=== PATIENT | male | born 1990 | race African-American/Black ===

== ENCOUNTER 2018-11-02 09:39 | Emergency (ER) | payer OTHER | END 2018-11-02 12:48 | disposition home or self-care (01) | LOC: JERFT 09:39 ==

== ENCOUNTER 2018-11-16 11:48 | Emergency (ER) | payer OTHER ==
[2018-11-16 12:34] VITALS: BP 127/79; PULSE 63; TEMP 98; BMI 30.7
--- NOTE | 2018-11-16 13:20 | PDOC ---
Suture Removal/Wound Check HPI - History of Present Illness Chief Complaint: Suture/Staple Removal(Here) Stated Complaint: STITCHES REMOVAL Time Seen by Provider: 11/16/18 12:52 History Source: Yes: Patient (pt is here for suture removal) - Previous ED Treatment Type of procedure performed on last visit: Yes: Laceration Repair Tetanus Immunization: Yes: Up to Date Past History - Travel Traveled outside of the country in the last 30 days: No Close contact w/someone who was outside of country & ill: No - Past Medical History Allergies/Adverse Reactions: Allergies Allergy/AdvReac Type Severity Reaction Status Date / Time No Known Allergies Allergy Verified 11/16/18 12:34 Home Medications: Ambulatory Orders Amox-Tr/K Cl [Augmentin 875Mg Tablet] 1 tab PO BID #14 tablet 11/02/18 Oxycodone HCl/Acetaminophen [Percocet 5-325 mg Tablet -] 1 - 2 tab PO Q4H PRN # 10 tablet MDD 6 11/02/18 COPD: No - Suicide/Smoking/Psychosocial Hx Smoking History: Never smoked Have you smoked in the past 12 months: No Information on smoking cessation initiated: No Hx Alcohol Use: No Drug/Substance Use Hx: No Suture Removal/Wound Check PE - Physical Exam Location of Laceration/Wound: left: Finger (thumb) *Review of Systems - Review of Systems Constitutional: No: Chills, Fever Musculoskeletal: No: Symptoms Reported, Joint Pain, Joint Swelling, Muscle Pain , Muscle Weakness Integumentary: No: Change in Color, Erythema, Pruritus, Rash *Physical Exam - Vital Signs Last Vital Signs Temp Pulse Resp BP Pulse Ox 98 F 63 18 127/79 99 11/16/18 12:31 11/16/18 12:31 11/16/18 12:31 11/16/18 12:31 11/16/18 12:31 - Physical Exam General Appearance: Yes: Nourished Extremity: positive: Normal Capillary Refill, Normal Range of Motion, Other ( Left thumb: + sutures noted, wound still fresh, minimal granulation tissue, edges not well approximated, no discharge or warmth) 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: 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: 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 II-XII NML intact, Fully Oriented, Alert, Normal Mood/ Affect, Normal Response, Motor Strength 5/5 Medical Decision Making - Medical Decision Making 11/16/18 13:16 L thumb lac repair 11/02/18, on abx for fx here for suture removal, no f/c pt examined, wound still healing, advised to keep stitches for 3 more days 11/16/18 13:31 *DC/Admit/Observation/Transfer Diagnosis at time of Disposition: Visit for wound check - Discharge Dispostion Disposition: HOME Condition at time of disposition: Stable Decision to Admit order: No - Referrals - Patient Instructions Printed Discharge Instructions: DI for Suture Removal Additional Instructions: Your stitches is not ready to come out You may return in 3 days for suture removal keep area dry - Post Discharge Activity
== END 2018-11-16 13:27 | disposition home or self-care (01) ==
LOC: JERFT 11:48
DX: Z48.817 Encounter for surgical aftercare following surgery on the skin and subcutaneous tissue (principal)
CPT/HCPCS: 99281-25

== ENCOUNTER 2018-11-22 12:04 | Emergency (ER) | payer OTHER ==
[2018-11-22 12:28] VITALS: BP 142/71; PULSE 67; TEMP 97.9; BMI 32.6
[2018-11-22] MEDS ORDERED: BACITRACIN 15 GM TUBE TOPICAL OINTMENT ONE (12:52)
--- NOTE | 2018-11-22 13:00 | PDOC ---
Suture Removal/Wound Check HPI - History of Present Illness Chief Complaint: Suture/Staple Removal(Here) Stated Complaint: STITCH REMOVAL Time Seen by Provider: 11/22/18 12:32 History Source: Yes: Patient Exam Limitations: Yes: No Limitations Treated at: [facility] ED - Previous ED Treatment Type of procedure performed on last visit: Yes: Laceration Repair Tetanus Immunization: Yes: Up to Date Past History - Travel Traveled outside of the country in the last 30 days: No Close contact w/someone who was outside of country & ill: No - Past Medical History Allergies/Adverse Reactions: Allergies Allergy/AdvReac Type Severity Reaction Status Date / Time No Known Allergies Allergy Verified 11/16/18 12:34 Home Medications: Ambulatory Orders Amox-Tr/K Cl [Augmentin 875Mg Tablet] 1 tab PO BID #14 tablet 11/02/18 Oxycodone HCl/Acetaminophen [Percocet 5-325 mg Tablet -] 1 - 2 tab PO Q4H PRN # 10 tablet MDD 6 11/02/18 Cephalexin Monohydrate [Keflex -] 500 mg PO Q8H #21 capsule 11/22/18 COPD: No - Suicide/Smoking/Psychosocial Hx Smoking History: Never smoked Have you smoked in the past 12 months: No Hx Alcohol Use: No Drug/Substance Use Hx: No Suture Removal/Wound Check PE - Physical Exam Laceration/Wound Check Symptoms: reports: Pain (mild with flexion and extension) Current Severity Level: Mild *Physical Exam - Vital Signs Last Vital Signs Temp Pulse Resp BP Pulse Ox 97.9 F 67 17 142/71 100 11/22/18 12:26 11/22/18 12:26 11/22/18 12:26 11/22/18 12:26 11/22/18 12:26 - Physical Exam General Appearance: Yes: Nourished, Appropriately Dressed. No: Apparent Distress Extremity: positive: Other (ildly swollen, but well approximated suture linewith some purulent drainage at suture sites. Has been approximately 3 weeks since repair and patient is without swellingbut is tender with range of motion. Able to express purulent drainage from 3 different sites therefore well continue antibiotics for an additional 5 days and have patient soak wound. All sutures were removed with good approximation) Integumentary: positive: Warm (.) Neurologic: positive: straightener II-XII NML intact, Fully Oriented, Alert, Normal Mood/ Affect, Normal Response, Motor Strength 5/5 *DC/Admit/Observation/Transfer Diagnosis at time of Disposition: Visit for suture removal Cellulitis Qualifiers: Site of cellulitis: extremity Site of cellulitis of extremity: finger Laterality: left Qualified Code(s): L03.012 - Cellulitis of left finger - Discharge Dispostion Disposition: HOME Condition at time of disposition: Stable Decision to Admit order: No - Referrals - Patient Instructions Printed Discharge Instructions: DI for Suture Removal Additional Instructions: Rest, keep area elevated. Avoid strenuous activity or exercise until wound is healed Use hot soaks to area to bring more blood to the surface and encourage drainage May change dressings as needed to keep clean Allow water from shower to wash area thoroughly for 2-3 minutes, and pat dry upon exit of shower and replace dressing. Change his dressing daily until the wound is completely healed. May use Tylenol or Motrin for mild pain relief Continue all medications as prescribed Followup with private physician in 2-3 days for wound check Return to emergency Department for worsening swelling, pain, redness, fevers as needed - Post Discharge Activity Forms/Work/School Notes: Back to Work
== END 2018-11-22 13:23 | disposition home or self-care (01) ==
LOC: JERFT 12:04
DX: Z48.02 Encounter for removal of sutures (principal)
CPT/HCPCS: 99281-25

== ENCOUNTER 2021-09-15 17:01 | Emergency (ER) | payer OTHER ==
[2021-09-15 17:11] VITALS: BP 150/81; PULSE 63; TEMP 97.8; BMI 33.4
[2021-09-15] MEDS ORDERED: KETOROLAC TROMETHAMINE 30 MG/1 ML VIAL IM ONE (17:31)
== END 2021-09-15 18:08 | disposition home or self-care (01) ==
LOC: JERFT 17:01
PROC: 3E0233Z Introduction of Anti-inflammatory into Muscle, Percutaneous Approach (ICD-10-PCS; principal; 2021-09-15)
DX: M25.512 Pain in left shoulder (principal); M25.511 Pain in right shoulder; X50.0XXA Overexertion from strenuous movement or load, initial encounter
CPT/HCPCS: 73030-TC-LT-FY; 73030-TC-RT-FY; 99284-25

== ENCOUNTER 2023-09-19 12:04 | Emergency (ER) | payer OTHER ==
[2023-09-19 12:15] VITALS: BP 139/68; PULSE 77; RESP 18; TEMP 98.4; BMI 33.4
== END 2023-09-19 14:05 | disposition home or self-care (01) ==
LOC: JERFT 12:04
DX: S81.811A Laceration without foreign body, right lower leg, initial encounter (principal); W26.8XXA Contact with other sharp object(s), not elsewhere classified, initial encounter; Y99.0 Civilian activity done for income or pay
CPT/HCPCS: 73590-TC-RT-FY; 99283-25

== ENCOUNTER 2024-09-30 21:35 | Emergency (ER) | payer OTHER ==
[2024-09-30 21:39] VITALS: BP 143/84; PULSE 76; RESP 18; TEMP 98.4; BMI 33.4
[2024-09-30] MEDS ORDERED: ACETAMINOPHEN 500 MG TABLET (FP) ONE (22:00)
[2024-09-30] MEDS ORDERED: DEXAMETHASONE SOD PHOSPHATE 10 MG/1 ML VIAL ONE (22:01)
[2024-09-30] MEDS: DEXAMETHASONE SOD PHOSPHATE 10 MG/1 ML VIAL PO ONE (22:08)
[2024-09-30] MEDS: ACETAMINOPHEN 500 MG TABLET (FP) PO ONE (22:09)
== END 2024-09-30 22:34 | disposition home or self-care (01) ==
LOC: JERFT 21:35
DX: J02.9 Acute pharyngitis, unspecified (principal)
CPT/HCPCS: 87651; 99283-25; J1100